=== PATIENT | female | born 1975 | race Caucasian/White ===

== ENCOUNTER 2020-04-23 17:46 | Emergency (ER) | payer OTHER ==
[~2020-04-23] VITALS: Ht 160 cm; Wt 65.8 kg
--- NOTE | 2020-04-23 18:45 | Diagnostic Imaging Report ---
KNEE RIGHT THREE VIEWS - Multiple views HISTORY: ^right knee pain COMPARISON: None available. FINDINGS: Bones: No acute displaced fracture. Osseous alignment is within normal limits. Joints: The joint spaces are well-maintained. Soft tissues: The soft tissues appear unremarkable. IMPRESSION: No acute radiographic abnormality. Signed by: Norberto Bravo MD on 04/23/2020 6:42 PM
--- OUTSIDE RECORDS SUMMARY | 2020-04-23 19:20 | XMS REPORT | Clinical Summary ---
Author Author [facility] Address Unknown Phone Unavailable Care Team Providers Care Lead Sharepoint Developer Name Role Phone PCP Unavailable Allergies Not on File Medications Not on file Active Problems Not on file Encounters Care Team Description Date Type Specialty Exposure to SARS-associated coronavirus (Primary Dx) 12/18/2019 Clinical Urgent Care Support Exposure to SARS-associated coronavirus (Primary Dx) 12/11/2019 Clinical Urgent Care Support Exposure to SARS-associated coronavirus (Primary Dx) 12/04/2019 Clinical Urgent Care Support Exposure to SARS-associated coronavirus (Primary Dx) 11/28/2019 Clinical Urgent Care Support after 04/23/2019 Social History Date Tobacco Use Types Packs/Day Years Used Never Assessed Sex Assigned at Date Recorded Not on file Last Filed Vital Signs Not on file Plan of Treatment Not on file Procedures Comments Procedure Name Priority Date/Time Associated Diag nosis SARS-COV2/RT-PCR ([facility] & Routine 12/18/2019 Expos ure to REF LABS) 5:18 PM CDT SARS-associated coronavirus SARS-COV-2(COVID19)HIGHRI Routine 12/18/2019 Expo sure to SKRT-PCR 5:18 PM CDT SARS-associated coronavirus SARS-COV2/RT-PCR ([facility] & Routine 12/11/2019 Expos ure to REF LABS) 11:31 AM CDT SARS-associated coronavirus SARS-COV2/RT-PCR ([facility] & Routine 12/04/2019 Expos ure to REF LABS) 4:01 PM CDT SARS-associated coronavirus SARS-COV2/RT-PCR ([facility] & Routine 11/28/2019 Expos ure to REF LABS) 12:13 PM CDT SARS-associated coronavirus after 04/23/2019 Results * SARS-CoV2/RT-PCR ([facility] & Ref Labs) (12/18/2019 5:18 PM CDT) Only the most recent of 4 results within the time period is included. SARS-COV2/RT-PC Negative Not Detected, [facility] R Negative, See NON-INTERFACED external report for REFERENCE LABS linked test SARS-COV-2 CPL [facility] PERFORMING LAB NON-INTERFACED REFERENCE LABS Specimen Other - Nasopharyngeal wall structure (body structure) Performing Organization Address City/[facility] Ph one Number [facility] NON-INTERFACED REFERENCE LABS * SARS-COV-2(COVID19)HIGHRISKRT-PCR (12/18/2019 5:18 PM CDT) SARS-COV-2 NegativeComment: . [facility] Specimen Other - Nasopharyngeal wall structure (body structure) Performing Organization Address City/[facility] Ph one Number [address] [facility] after 04/23/2019
--- OUTSIDE RECORDS SUMMARY | 2020-04-23 19:20 | XMS REPORT | Continuity of Care Document ---
Author Author [facility] Organization [facility] Address [address] [place] [address] Phone Unavailable Care Team Providers Care Supervisor Firearms Name Role Phone Unavailable Unavailable Problems This patient has no known problems. Allergies, Adverse Reactions, Alerts This patient has no known allergies or adverse reactions. Social History Social Habit Start Date Stop Date Quantity Comments Source Sex Assigned At [facility] Medications This patient has no known medications. Procedures Procedure Date / Time Performed Performing Clinician Sourc e SARS-COV2/RT-PCR ([facility] & REF LABS) 2019-12-18 17:18:35 Lopez Mohamud [facility] SARS-COV-2(COVID19)HIGHRISKRT-PCR 2019-12-18 17:18:00 Liang Mohamud [facility] SARS-COV2/RT-PCR ([facility] & REF LABS) 2019-12-11 11:31:00 Lopez Mohamud [facility] SARS-COV2/RT-PCR ([facility] REF [facility]S) 2019-12-04 16:01:25 Lopez Mohamud [facility] SARS-COV2/RT-PCR ([facility] REF [facility]S) 2019-11-28 12:13:52 Donaldbandar Lopez [facility] Results Test Description Test Time Test Comments Results Result Comments Source KNEE RIGHT THREE VIEWS 2020-04-23 18:42:00 [facility] : 1975 Sex: F [facility] [address] [address] Patient Name: DONOVAN HAGEN MR #: [id number] : 1975 Age/Sex: 44/F Req #: [id number] [facility] Physician: Ordered by: CHRIST PIERRE MD Report #: [id number] Location: ER Room/Bed: Procedure: [id number] DX/KNEE RIGHT THREE VIEWS Exam Date: Exam Time: REPORT STATUS: Signed KNEE RIGHT THREE VIEWS - Multiple views HISTORY: right knee pain COMPARISON: None available. FINDINGS: Bones: No acute displaced fracture. Osseous alignment is within normal limits. Joints: The joint spaces are well-maintained. Soft tissues: The soft tissues appear unremarkable. IMPRESSION: No acute radiographic abnormality. Signed by: Norberto Morales MD on 04/23/2020 6:42 PM Dictated By: NORBERTO MORALES MD 42 Transcribed By: MARCIN on 04/23/201841 COPY TO: CHRIST PIERRE MD SARS-COV-2(COVID19)HIGHRISKRT-PCR 2019-12-21 18:33:00 Test Item SARS-COV-2 INTERPRETATION (test code = 76637-0) Negative . [facility] Ref Labs)2019-12-20 14:22:00* Test Item Value Reference Range Interpretation Comments SARS-COV2/RT-PCR (test code = 38340-6) Negative N ot Detected, Negative, See external report for linked test SARS-COV-2 PERFORMING LAB (test code = 92037-9) [facility] REF [facility])2019-12-20 14:22:00* Test Item Value Reference Range Interpretation Comments SARS-COV2/RT-PCR (test code = 6833493) Negative N ot Detected, Negative, See external report for linked test SARS-COV-2 PERFORMING LAB (test code = 5559803) CPL SARS-COV2/RT-PCR ([facility] REF [facility]S)2019-12-12 23:56:00* Test Item Value Reference Range Interpretation Comments SARS-COV2/RT-PCR (test code = 4517086) Negative Not Detected, N egative SARS-COV-2 PERFORMING LAB (test code = 0269363) CPL SARS-COV2/RT-PCR ([facility] REF [facility]S)2019-12-06 16:58:00* Test Item Value Reference Range Interpretation Comments SARS-COV2/RT-PCR (test code = 1412776) Negative Not Detected, N egative SARS-COV-2 PERFORMING LAB (test code = 7593775) CPL SARS-COV2/RT-PCR ([facility] REF [facility]S)2019-12-04 08:24:00* Test Item Value Reference Range Interpretation Comments SARS-COV2/RT-PCR (test code = 5406912) Negative Not Detected, N egative SARS-COV-2 PERFORMING LAB (test code = 8731110) CPL
--- NOTE | 2020-04-23 19:51 | Emergency Department Note ---
History of Present Illnes History of Present Illness Chief Complaint: Extremity Trauma/Pain History of Present Illness This is a 44 year old female in from home with complaints of posterior right knee pain that started about a week ago. Patient does not recall any mechanism of injury or trauma. Patient reports the pain is a ache or soreness and feels that the back of her knee is swollen. Patient believes that the pain is affecting her range of motion. Patient is ambulatory without a limp. No acute distress noted . Historian: Patient Arrival Mode: Car Onset (how long ago): week(s) (1) Location: BEHIND RIGHT KNEE Quality: PAIN Radiation: Reports non-radiation Severity: mild Onset quality: gradual Duration (how long): week(s) (1) Timing of current episode: constant Progression: worsening Chronicity: new Context: Denies recent illness, Denies recent surgery, Denies trauma/injury Relieving factors: none Exacerbating factors: movement Associated symptoms: Reports denies other symptoms Past Medical/Family History Physician Review I have reviewed the patient's past medical and family history. Any updates have been documented here. Past Medical History Recent Fever: No Clinical Suspicion of Infectio: No New/Unexplained Change in Ment: No Past Medical History: None Past Surgical History: Social History Smoking Cessation: Never Smoker Alcohol Use: Occasional Any Illegal Drug Use: No Physically hurt or threatened: No Family History Family history of heart diseas: No Other Any Pre-Existing Lines (PICC,: No Review of Systems Review of Systems Constitutional: Reports no symptoms EENTM: Reports no symptoms Cardiovascular: Reports no symptoms Respiratory: Reports no symptoms Gastrointestinal: Reports no symptoms Genitourinary: Reports no symptoms Musculoskeletal: Reports as per HPI Integumentary: Reports no symptoms Neurological: Reports no symptoms Psychological: Reports no symptoms Endocrine: Reports no symptoms Hematological/Lymphatic: Reports no symptoms Physical Exam Related Data Allergies: Coded Allergies: hydromorphone (Verified Allergy, Intermediate, rash, itchy, 04/23/20) Triage Vital Signs Vital Signs Date Time Temp Pulse Resp B/P (MAP) Pulse Ox O2 Delivery O2 Flow Rate FiO2 04/23/20 18:00 98.7 84 16 125/88 100 Room Air Vital signs reviewed: Yes Physical Exam CONSTITUTIONAL Constitutional: Present well-developed, Present well-nourished HENT HENT: Present normocephalic, Present atraumatic, Present oropharynx clear/moist, Present nose normal HENT L/R: Present left ext ear normal, Present right ext ear normal EYES Eyes: Reports PERRL, Reports conjunctivae normal NECK Neck: Present ROM normal PULMONARY Pulmonary: Present effort normal, Present breath sounds normal CARDIOVASCULAR Cardiovascular: Present regular rhythm, Present heart sounds normal, Present capillary refill normal, Present normal rate GASTROINTESTINAL Abdominal: Present soft, Present nontender, Present bowel sounds normal GENITOURINARY Genitourinary: Present exam deferred SKIN Skin: Present warm, Present dry MUSCULOSKELETAL RIGHT KNEE WITH NORMAL RANGE OF MOTION, SWELLING PRESENT TO POSTERIOR ASPECT OF RIGHT KNEE, CYST LIKE STRUCTURE PULSES INTACT, PT AMBULATES WITH STEADY GAIT, NO LIMP PRESENT NEUROLOGICAL Neurological: Present alert, Present oriented x 3, Present no gross motor or sensory deficits PSYCHOLOGICAL Psychological: Present mood/affect normal, Present judgement normal Results Imaging Imaging results reviewed: Yes Impressions Procedure: [id number] DX/KNEE RIGHT THREE VIEWS Exam Date: Exam Time: REPORT STATUS: Signed KNEE RIGHT THREE VIEWS - Multiple views HISTORY: ^right knee pain COMPARISON: None available. FINDINGS: Bones: No acute displaced fracture. Osseous alignment is within normal limits. Joints: The joint spaces are well-maintained. Soft tissues: The soft tissues appear unremarkable. IMPRESSION: No acute radiographic abnormality. Signed by: Norberto Morales MD on 04/23/2020 6:42 PM Dictated By: NORBERTO MORALES MD 42 Transcribed By: MARCIN on 04/23/201841 COPY TO: CHRIST PIERRE MD~ Assessment & Plan Medical Decision Making MDM PT WITH POSTERIOR RIGHT KNEE PAIN XRAY ORDERED TO EVAL FOR FRACTURE Assessment & Plan Final Impression: (1) Cerna's cyst of knee (2) Right knee pain Depart Disposition: HOME, SELF-CARE Last Vital Signs Date Time Temp Pulse Resp B/P (MAP) Pulse Ox O2 Delivery O2 Flow Rate FiO2 04/23/20 18:46 98.3 76 18 134/93 100 Room Air CHRIST PIERRE MD Apr 23, 2020 19:51
[2020-04-23 20:04] VITALS: BP 138/92
== END 2020-04-23 20:06 | disposition home or self-care (01) ==
LOC: ER 19:17
DX: M25.561 Pain in right knee (principal); M71.21 Synovial cyst of popliteal space [Baker], right knee
CPT/HCPCS: 99283